=== PATIENT | male | born 1950 | race Caucasian/White ===

== ENCOUNTER 2023-04-12 13:02 | Outpatient (RCR) | payer MEDICARE, SELFPAY | END 2023-04-12 13:48 | disposition home or self-care (01) | LOC: RPT 13:02 | PROVIDERS: ATTENDING PHYSICIAN Physician Assistant; PRIMARYCARE PHYSICIAN Family Medicine | DX: M75.121 Complete rotator cuff tear or rupture of right shoulder, not specified as traumatic (principal); M47.26 Other spondylosis with radiculopathy, lumbar region | CPT/HCPCS: 97110; 97112 ==

== ENCOUNTER → 2023-12-09 10:50 | Outpatient (REF) | payer MEDICARE, SELFPAY | LOC: RAD 10:50 | PROVIDERS: ATTENDING PHYSICIAN Family Medicine | DX: M25.561 Pain in right knee (principal) | CPT/HCPCS: 73564 ==

== ENCOUNTER → 2023-12-18 09:53 | Outpatient (REF) | payer MEDICARE, SELFPAY | LOC: RCS 09:53 | PROVIDERS: ATTENDING PHYSICIAN Internal Medicine Cardiovascular Disease; FAMILY PHYSICIAN Family Medicine | DX: R01.1 Cardiac murmur, unspecified (principal) | CPT/HCPCS: 93306 ==

== ENCOUNTER 2023-12-27 06:41 | Emergency (ER) | payer MEDICARE, SELFPAY ==
[2023-12-27 06:48] VITALS: BP 155/82
--- NOTE | 2023-12-27 07:12 | ED.GENMED ---
History of Present Illness
General
Chief Complaint: Nose Bleed
Source: patient
Exam Limitations: none
Time Seen by Provider: 12/27/23 06:56
History of Present Illness
History of Present Illness:
See MDM
Past History
Past History
ED Past Medical History: Arrthythmia (Atrial fib, SAVT), Cancer (Basal cell skin CA), COPD, HTN, Hypercholesterolemia, NIDDM and Other (Ocular Migraines, herniated disc, Renal calculus)
ED Past Surgical History: Cardiac (cardiac ablation X 2), Orthopedic (Right knee surgery. Left rotator cuff repair, R TKR, Back surgery, left Meniscus) and Other ( Umbilical Hernia )
Patient has exhibited threatening behavior?: No
PSI?: No
Social History
Tobacco: Non-smoker
Alcohol: Occasional
Personal:
Living: with family
Phy Exam
Physical Exam
Physical Exam:
See MDM
Course
Vital Signs
Initial and Last Documented VS:
Initial Vital Signs
Temp Pulse Resp BP Pulse Ox
98.4 F 84 20 155/82 97
12/27/23 06:48 12/27/23 06:48 12/27/23 06:48 12/27/23 06:48 12/27/23 06:48
Last Documented Vital Signs
Temp Pulse Resp BP Pulse Ox
98.4 F 84 20 155/82 97
12/27/23 06:48 12/27/23 06:48 12/27/23 06:48 12/27/23 06:48 12/27/23 06:48
MDM/Problems Addressed
Differential Diagnosis Includes:
HPI and MDM Narrative:
73-year-old male presenting with right-sided nosebleeding. Patient had 2 large sneezing episodes earlier this morning. He then noted that his nose was running. He realized it was blood. He pushed a tissue in his nose and came to the emergency
department. He is on Xarelto. On arrival, a nasal clamp was placed in triage. When I evaluated the patient, I remove the clamp and the nasal packing and there is no active bleeding noted
Physical exam
General: Well appearing and non-toxic
HEENT: protecting airway. Mild excoriation to right nasal passage without active bleeding
Neck: appears supple
CV: No evidence of cyanosis
Resp: No accessory muscle use
Abd: Non-distended
Extremities: No deformities
Neuro: alert
Psych: Normal affect
Skin: Intact
Problems Addressed including Acute and Chronic Conditions affecting care:
1. Epistaxis
Acuity: acute
Prognosis: stable
Details: Symptoms resolved with external pressure
Updates
After prolonged observation, patient still without any active bleeding. Patient feels comfortable going home. Will hold Xarelto for the next 24 hours. Discussed nosebleeding precautions
Differential Diagnosis (but not limited to): Anterior epistaxis, posterior
Testing considered: Hemoglobin but bleeding was fleeting
Drug therapy (if applicable): OTC meds, please see d/c instruction regarding Rx drugs
Amount and/or Complexity of Data Reviewed
Clinical info obtained from: Patient
External data reviewed: N/A
Labs I independently reviewed (but not limited to): N/A
Radiology: N/A
Pulse Ox: not hypoxic
EKG independently reviewed: N/A
Rn Home Health: N/A
Critical Care: N/A
Risk of Complication:
Social Determinants of health: Good social support
Discussed with other providers: N/A
Escalation of Care includes Admit/Obs: After being observed in the Emergency Department, pt stable for discharge.
Occasional wrong word or 'sound a like' substitutions may have occurred due to the inherent limitations of voice recognition software. Read the chart carefully and recognize, using context, where substitutions have occurred.
*Critical Care Note
Total Time (30-74mins, 75-104mins- exclusive of procedures): Not Applicable
ED Attending Note
-
Portions of this chart may have been created with voice recognition software.� Occasional wrong word or��sound alike� substitutions may have occurred due to the inherent limitations of voice recognition software.
Discharge Plan
Departure
Patient Disposition: Home (Routine Discharge)
Date of Disposition: 12/27/23
Time of Disposition: 07:53
Patient with high blood pressure during this ER visit?: Yes
Discharge Problem:
Epistaxis
Instructions: Nosebleeds (DC), BLOOD PRESSURE
Prescriptions:
No Action
atorvastatin 20 MG tablet
20 mg PO QPM
lisinopril 20 MG tablet
20 mg PO DAILY
metformin 1,000 MG tablet
1,000 mg PO BID
Xarelto 20 MG tablet
20 mg PO QPM
glipizide 2.5 MG tablet extended release 24hr
2.5 mg PO DAILY
albuterol sulfate 1 PUFF HFA aerosol inhaler
2 puff inhalation PRN PRN (Reason: sob/wheezing)
pantoprazole 40 mg tablet,delayed release (DR/EC)
40 mg PO DAILY
Qvar RediHaler 80 mcg/actuation Hfa Aerosol Breath Activated
2 inh INHALATION BID
fluticasone propionate 50 mcg/actuation [place],Suspension
2 spray INTRANASAL BID
multivitamin Tablet
1 tab PO DAILY
acetaminophen 500 mg Tablet
1,000 mg PO DAILY
tamsulosin 0.4 mg capsule
0.4 mg PO HS
diltiazem HCl 240 mg Capsule,Extended Release 24hr
240 mg PO DAILY Qty: 30 0RF
metoprolol succinate 25 mg Tablet Extended Release 24 Hr
75 mg PO BID
finasteride 5 mg Tablet
5 mg PO DAILY
Vitmain B12
1 tab PO DAILY
iron
1 tab PO DAILY
Referrals:
UNKNOWN - PT NOT,INTERVIEWE [Family Provider] -
Activity Restrictions/Additional Instructions:
Please return for any worsening symptoms.
You may return at any time if you have further concerns.
Please follow up with your doctor at the first available appointment, preferably this week.
Please do not take Xarelto today.
Thank you for choosing [facility].
Discharge Date and Time
Print Language: LIBYAN
[2023-12-27 08:00] VITALS: BP 138/85
== END 2023-12-27 08:01 | disposition home or self-care (01) ==
LOC: EMR 06:41
PROVIDERS: EMERGENCY PHYSICIAN Student in an Organized Health Care Education/Training Program
DX: R04.0 Epistaxis (principal); I48.91 Unspecified atrial fibrillation; I10 Essential (primary) hypertension; J44.9 Chronic obstructive pulmonary disease, unspecified; E78.00 Pure hypercholesterolemia, unspecified; E11.9 Type 2 diabetes mellitus without complications; Z79.01 Long term (current) use of anticoagulants; Z96.651 Presence of right artificial knee joint; Z87.442 Personal history of urinary calculi; Z85.828 Personal history of other malignant neoplasm of skin; Z88.2 Allergy status to sulfonamides; Z91.048 Other nonmedicinal substance allergy status
CPT/HCPCS: 99281

== ENCOUNTER → 2024-03-05 12:36 | Outpatient (REF) | payer MEDICARE, SELFPAY | LOC: HWRAD 12:36 | PROVIDERS: ATTENDING PHYSICIAN Specialist; FAMILY PHYSICIAN Family Medicine | DX: N20.1 Calculus of ureter (principal) | CPT/HCPCS: 74176 ==

== ENCOUNTER 2024-05-09 10:00 | Emergency (ER) | payer MEDICARE, SELFPAY ==
[2024-05-09 10:07] VITALS: BP 162/86
--- NOTE | 2024-05-09 12:02 | ED.GENMED ---
History of Present Illness
General
Chief Complaint: Nose Bleed
Source: patient
Exam Limitations: none
Time Seen by Provider: 05/09/24 12:02
Nursing documentation reviewed up to this point in time: agreed with
History of Present Illness
History of Present Illness:
73-year-old male with history of COPD, A-fib on Xarelto, HTN, HLD, NIDDM, cardiac ablation for SVT x 3, ablation for A-fib in 2014, presents today for bleeding right nares since 4:30 this a.m. Nose clamp placed in Triage and now there is no
bleeding.
Past History
Past History
ED Past Medical History: Arrthythmia (Atrial fib, SAVT), Cancer (Basal cell skin CA), COPD, HTN, Hypercholesterolemia, NIDDM and Other (Ocular Migraines, herniated disc, Renal calculus)
ED Past Surgical History: Cardiac (cardiac ablation X 2), Orthopedic (Right knee surgery. Left rotator cuff repair, R TKR, Back surgery, left Meniscus) and Other ( Umbilical Hernia )
Patient has exhibited threatening behavior?: No
PSI?: No
Social History
Tobacco: Non-smoker
Alcohol: Occasional
Personal:
Living: with family
Review of Systems
Review of Systems
Allergies reviewed?: Yes
All Other Systems: ROS reviewed and negative except as documented in HPI and ROS
Constitutional: Denies fever
EENT: Reports other (was bleeding from right side of nose)
Respiratory: Reports no symptoms
Cardiac: Reports no symptoms
ABD/GI: Denies nausea or vomiting
Skin: Reports no symptoms
Neurological: Reports no symptoms
Phy Exam
Physical Exam
Physical Exam:
GENERAL: No acute distress. A&Ox3.
CONSTITUTIONAL: Afebrile.
EYES: clear, conjunctivae normal
ENMT: moist mucus membranes, Pharynx nl, small amount fresh blood in posterior right nasal passage. Blew nose, no significant bleeding.
RESPIRATORY: Regular respirations, nonlabored, lungs clear.
CARDIOVASCULAR: Regular rate and rhythm, no murmurs, no rubs.
GI: Soft, nontender
MUSCULOSKELETAL: Moves with ease. Well perfused.
SKIN: Warm, dry, pink
PSYCH: Normal mood and affect. Well kept, interactive and appropriate
NEUROLOGIC: Awake, alert and oriented. No focal neurological deficits
Course
Vital Signs
Initial and Last Documented VS:
Initial Vital Signs
Temp Pulse Resp BP Pulse Ox
98.1 F 97 16 162/86 97
05/09/24 10:07 05/09/24 10:07 05/09/24 10:07 05/09/24 10:07 05/09/24 10:07
Last Documented Vital Signs
Temp Pulse Resp BP Pulse Ox
98.1 F 97 16 162/86 97
05/09/24 10:07 05/09/24 10:07 05/09/24 10:07 05/09/24 10:07 05/09/24 10:07
Procedures
Nosebleed
Drug treatment: Lidocaine and Epinephrine
Treatment: Merocel packing (8 cm cut down to 7 cm inserted without problem, )
Post treatment bleeding: none- good control
MDM/Problems Addressed
MDM/Problems Addressed:
73-year-old male with history of COPD, A-fib on Xarelto, HTN, HLD, NIDDM, cardiac ablation for SVT x 3, ablation for A-fib in 2014, presents today for bleeding right nares since 4:30 this a.m. Nose clamp placed in Triage and now there is no
bleeding.
Although no bleeding currently, pt requesting nasal packing, he has seen Dr. Mayer in the past and will follow up with him on Saturday.
No further bleeding
Chronic conditions affecting care: HTN and Arrhythmia (on Xarelto)
*Critical Care Note
Total Time (30-74mins, 75-104mins- exclusive of procedures): Not Applicable
ED Attending Note
-
Portions of this chart may have been created with voice recognition software.� Occasional wrong word or��sound alike� substitutions may have occurred due to the inherent limitations of voice recognition software.
Discharge Plan
Departure
Patient Disposition: Home (Routine Discharge)
Date of Disposition: 05/09/24
Time of Disposition: 13:10
Patient with high blood pressure during this ER visit?: No
Condition: Good
Discharge Problem:
Right-sided epistaxis
Instructions: Nosebleeds (DC)
Prescriptions:
No Action
atorvastatin 20 MG tablet
20 mg PO QPM
lisinopril 20 MG tablet
20 mg PO DAILY
metformin 1,000 MG tablet
1,000 mg PO BID
Xarelto 20 MG tablet
20 mg PO QPM
glipizide 2.5 MG tablet extended release 24hr
2.5 mg PO DAILY
albuterol sulfate 1 PUFF HFA aerosol inhaler
2 puff inhalation PRN PRN (Reason: sob/wheezing)
pantoprazole 40 mg tablet,delayed release (DR/EC)
40 mg PO DAILY
Qvar RediHaler 80 mcg/actuation Hfa Aerosol Breath Activated
2 inh INHALATION BID
fluticasone propionate 50 mcg/actuation [place],Suspension
2 spray INTRANASAL BID
multivitamin Tablet
1 tab PO DAILY
acetaminophen 500 mg Tablet
1,000 mg PO DAILY
tamsulosin 0.4 mg capsule
0.4 mg PO HS
diltiazem HCl 240 mg Capsule,Extended Release 24hr
240 mg PO DAILY Qty: 30 0RF
metoprolol succinate 25 mg Tablet Extended Release 24 Hr
75 mg PO BID
finasteride 5 mg Tablet
5 mg PO DAILY
Vitmain B12
1 tab PO DAILY
iron
1 tab PO DAILY
Referrals:
Rj Clark MD [Family Provider] -
Conrad Mayer MD [Active] - Follow up in 2-3 days
Activity Restrictions/Additional Instructions:
As we discussed call Dr. Mayer's office first thing Saturday and make appointment for same or next day to have the packing removed.
Return here if bleeding recurs and you can't get it to stop after 3 times of 15 minutes each application of the nose clamp
Interventions
Interventions:
*Risk Screen - Suicide Last Done: 05/09/24 10:08
*General Assessment Last Done: 05/09/24 13:33
*Neglect/Abuse Screening Last Done: 05/09/24 10:08
ED- Fall Risk Assessment Last Done: 05/09/24 13:34
*ED COVID-19 Vaccine History Last Done: 05/09/24 13:33
*Nursing Disposition Last Done: 05/09/24 13:34
ED-EENT Assessment Last Done: 05/09/24 13:33
Discharge Date and Time
Discharge Date/Time: 05/09/24 13:35
Print Language: DANISH
== END 2024-05-09 13:35 | disposition home or self-care (01) ==
LOC: EMR 10:00
PROVIDERS: EMERGENCY PHYSICIAN Emergency Medicine; FAMILY PHYSICIAN Family Medicine
DX: R04.0 Epistaxis (principal); J44.9 Chronic obstructive pulmonary disease, unspecified; I48.91 Unspecified atrial fibrillation; I10 Essential (primary) hypertension; E78.00 Pure hypercholesterolemia, unspecified; E11.9 Type 2 diabetes mellitus without complications; Z79.01 Long term (current) use of anticoagulants; Z85.828 Personal history of other malignant neoplasm of skin; Z87.442 Personal history of urinary calculi
CPT/HCPCS: 99282; 30901